=== PATIENT | female | born 1955 | race Caucasian/White ===

== ENCOUNTER → 2016-10-03 | Outpatient (CLI) | payer BC ==
[~2016-10-03] MED LIST: AVAPRO150 MG PO; HYDROXYZINE HCL25 MG PO; LEVOTHYROXIN0.075 MG PO; TESTOSTERONE1 POW PO; TRI-EST PO
== END ==
LOC: MC.RAD 07:25
DX: Z12.31 Encounter for screening mammogram for malignant neoplasm of breast (principal)

== ENCOUNTER → 2017-10-22 | Outpatient (CLI) | payer BC | LOC: MC.RAD 07:32 | DX: Z12.31 Encounter for screening mammogram for malignant neoplasm of breast (principal) ==

== ENCOUNTER → 2017-12-28 | Outpatient (CLI) | payer BC | LOC: COL.RAD 10:30 | DX: R22.1 Localized swelling, mass and lump, neck (principal) ==

== ENCOUNTER → 2018-10-24 | Outpatient (CLI) | payer BC | LOC: MC.RAD 08:30 | DX: Z12.31 Encounter for screening mammogram for malignant neoplasm of breast (principal) ==

== ENCOUNTER → 2019-10-27 | Outpatient (CLI) | payer BC | LOC: MC.RAD 08:18 | DX: Z12.31 Encounter for screening mammogram for malignant neoplasm of breast (principal) ==

== ENCOUNTER → 2021-06-28 | Outpatient (CLI) | payer MEDICARE | LOC: MC.RAD 06-06 08:45 | DX: Z12.31 Encounter for screening mammogram for malignant neoplasm of breast (principal) ==

== ENCOUNTER → 2023-11-28 | Outpatient (CLI) | payer MEDICARE ==
[~2023-11-28] MED LIST changes: +CARDIZEM LA120 MG PO; +CEPHALEXIN500 M1 PO; +D3-5050000 IU PO; +HYGROTON 2525 MG/TAB PO; +LOPRESSOR 225 MG/TAB PO; +NAPROSYN500 MG PO; +PERCOCET 325 MG1 TA2 PO; +SYNTHROID0.088 MG/T PO; +XARELTO15 MG PO; +ZYRTEC 10MG10 MG PO
== END ==
LOC: MC.RAD 13:30
DX: Z12.31 Encounter for screening mammogram for malignant neoplasm of breast (principal)